=== PATIENT | female | born 1975 | race Native Hawaiian/Other Pacific Islander ===

== ENCOUNTER → 2018-07-27 14:49 | Outpatient (CLI) | payer OTHER, SELFPAY ==
[2018-07-27 15:10] LABS: Add Manual Diff / Slide Review NO; Basophils Absolute Auto 200 /uL (0-100); Eosinophils Absolute Auto 200 /uL (0-450); Eosinophils Percent Auto 1.8 % (2-4); Hematocrit 44.2 % (36-46); Hemoglobin 15.1 g/dL (12.0-16.0); Lymphocytes Absolute Auto 2200 /uL (1100-4500); Lymphocytes Percent Auto 22.6 % (25-40); Mean Corpuscular HGB Conc 34.1 % (30-36); Mean Corpuscular Hemoglobin 31.4 PG (26-34); Mean Corpuscular Volume 91.9 fL (80-100); Monocytes Absolute Auto 400 /uL (0-900); Monocytes Percent Auto 4.2 % (3-14); Neutrophils Absolute Auto 6800 /uL (1500-7000); Neutrophils Percent Auto 69.4 % (50-75); Platelet Count 323 X10^3/uL (150-400); Red Blood Cell Count 4.81 X10^6/uL (4.0-5.2); Red Cell Distribution Width 12.2 % (11.6-14.8); White Blood Cell Count 9.8 X10^3/uL (4.5-11.0)
--- NOTE | 2018-07-27 15:31 | DI.US.S_ITS ---
PROCEDURE: US PELVIC COMPLETE INDICATIONS: LOWER LEFT QUADRANT PAIN TECHNIQUE: Real-time scanning was performed of the pelvic organs, with image documentation. Additional endovaginal scanning was necessary due to incomplete visualization of the adnexal and endometrial structures by transabdominal scanning. COMPARISON: None. FINDINGS: Transabdominal scanning: Limited scanning through the kidneys shows no hydronephrosis. No pathologic free abdominal or pelvic fluid. Endovaginal scanning: Uterus: Surgically absent Ovaries: Right ovary could not be seen despite both transabdominal and transvaginal scanning. The left ovary measures 4.0 x 4.0 x 4.8 cm containing 2 simple cysts one measuring 2.5 x 3.5 x 3.6 cm and the second measuring 1.6 x 1.9 x 1.8 cm. IMPRESSION: 2 simple cysts are seen at the left ovary, measuring up to 3.6 cm in maximal dimension. Prior hysterectomy, nonvisualization of the right ovary. A definite source of left pelvic pain otherwise is not seen. Followup pelvic ultrasound in 6-8 weeks to further assess for the right ovary and assess for resolution of the dominant left ovarian cyst is recommended. Dictated by: Danish Koenig M.D. on 07/27/2018 at 16:15 Approved by: Danish Koenig M.D. on 07/27/2018 at 16:18
[2018-07-27 16:03] LABS: Alanine Aminotransferase 41 IU/L (9-52); Albumin 4.8 g/dL (3.5-5.0); Albumin Globulin Ratio 1.2 (1.0-2.8); Alkaline Phosphatase 60 U/L (38-126); Aspartate Aminotransferase 32 IU/L (14-36); Bilirubin Total 0.5 mg/dL (0.2-1.3); Blood Urea Nitrogen 10 mg/dL (7-17); Calcium 9.6 mg/dL (8.4-10.2); Carbon Dioxide 27 mmol/L (22-32); Chloride 100 mmol/L (98-107); Estimated Glomerular Filt Rate > 60.0 mL/min (>60); Globulin 3.9 g/dL (1.7-4.1); Glucose 97 mg/dL (70-100); HEMOLYSIS < 15 (0-50); Potassium 4.4 mmol/L (3.4-5.1); Sodium 138 mmol/L (137-145); Total Protein 8.7 g/dL (6.3-8.2)
== END ==
PROVIDERS: Visit Provider Physician Assistant
DX: R10.32 Left lower quadrant pain (principal); N83.292 Other ovarian cyst, left side; Z90.710 Acquired absence of both cervix and uterus
CPT/HCPCS: 36415; 76830; 76856; 80053; 85025

== ENCOUNTER → 2018-09-18 13:24 | Outpatient (CLI) | payer OTHER, SELFPAY ==
[2018-09-18 13:56] LABS: Hemoglobin A1C% w Est Avg Glu 5.4 % (4.0-6.0)
[2018-09-18 14:26] LABS: Alanine Aminotransferase 40 IU/L (9-52); Albumin 4.7 g/dL (3.5-5.0); Albumin Globulin Ratio 1.3 (1.0-2.8); Alkaline Phosphatase 56 U/L (38-126); Aspartate Aminotransferase 28 IU/L (14-36); BUN Creatinine Ratio 18.3 (6-22); Bilirubin Total 0.6 mg/dL (0.2-1.3); Blood Urea Nitrogen 11 mg/dL (7-17); Calcium 9.5 mg/dL (8.4-10.2); Carbon Dioxide 26 mmol/L (22-32); Chloride 103 mmol/L (98-107); Cholesterol 103 mg/dL (140-199); Estimated Glomerular Filt Rate > 60.0 mL/min (>60); Globulin 3.5 g/dL (1.7-4.1); Glucose 93 mg/dL (70-100); HDL Cholesterol 71 mg/dL (40-60); HEMOLYSIS < 15 (0-50); LDL Cholesterol Calculated 25 mg/dL (<100); Potassium 4.5 mmol/L (3.4-5.1); Sodium 139 mmol/L (137-145); Total Protein 8.2 g/dL (6.3-8.2); Triglycerides 33 mg/dL (35-150)
== END ==
PROVIDERS: Visit Provider Physician Assistant
DX: Z13.1 Encounter for screening for diabetes mellitus (principal); Z82.49 Family history of ischemic heart disease and other diseases of the circulatory system; Z83.3 Family history of diabetes mellitus; Z13.220 Encounter for screening for lipoid disorders; Z13.6 Encounter for screening for cardiovascular disorders; Z83.438 Family history of other disorder of lipoprotein metabolism and other lipidemia
CPT/HCPCS: 36415; 80053; 80061; 83036

== ENCOUNTER → 2018-10-01 09:14 | Outpatient (CLI) | payer OTHER, SELFPAY ==
--- NOTE | 2018-10-01 09:16 | DI.US.S_ITS ---
PROCEDURE: US PELVIC COMPLETE INDICATIONS: LLQ pain TECHNIQUE: Real-time scanning was performed of the pelvic organs, with image documentation. Additional endovaginal scanning was necessary due to incomplete visualization of the adnexal and endometrial structures by transabdominal scanning. COMPARISON: [facility], , PELVIC COMPLETE, 07/27/2018, 15:11. FINDINGS: Transabdominal scanning: Limited scanning through the kidneys shows no hydronephrosis. No pathologic free abdominal or pelvic fluid. Endovaginal scanning: Uterus: Uterus is surgically absent. Numerous simple nabothian cysts are present in the residual cervix, largest measuring about 1.6 cm. Ovaries: The right ovary was not visualized. The left ovary measures 2.9 x 1.8 x 2.1 cm, decreased in size compared to the prior study. It contained 2 dominant cystic masses measuring 1.6 and 1.2 cm, previously 3.6 and 1.9 cm. Small amount of fluid in the left adnexa is present. There is normal vascularity in the left ovary. IMPRESSION: 1. Interval involution of 2 dominant follicles on the left ovary with trace amount of adjacent fluid indicating a recent decompression. 2. Nonvisualization of the right ovary. 3. Hysterectomy with numerous simple nabothian cysts in the residual cervix. Dictated by: Kaylene Tubbs M.D. on 10/01/2018 at 11:17 Approved by: Kaylene Tubbs M.D. on 10/01/2018 at 11:22
== END ==
PROVIDERS: PCP Physician Assistant; Visit Provider Physician Assistant
DX: R10.32 Left lower quadrant pain (principal); N88.8 Other specified noninflammatory disorders of cervix uteri; Z90.710 Acquired absence of both cervix and uterus
CPT/HCPCS: 76830; 76856

== ENCOUNTER 2019-06-05 14:59 | Emergency (ER) | payer OTHER, SELFPAY ==
[2019-06-05 15:23] VITALS: BP 146/81; PULSE 72; RESP 14; TEMP 36.5; O2SAT 100
[2019-06-05 15:26] LABS: Bacteria Urine None Seen
--- NOTE | 2019-06-05 15:35 | ED_ITS ---
HPI - Abdominal Pain General Chief Complaint: Abdominal Pain Stated Complaint: lower left abdominal pain Time Seen by Provider: 06/05/19 15:24 Source: patient and old records reviewed Mode of arrival: Ambulatory Limitations: no limitations History of Present Illness HPI narrative: This is a 43-year-old female who comes in with complaint of abdominal pain patient states left lower quadrant. She states she has had pain intermittently for 24 hours. But has become constant at this point. Patient states that she has had the pain in the past intermittently but will take ibuprofen and it will improve. She states today that has not been the case and she is still uncomfortable. She denies fevers. She denies any lightheadedness or passing out. She denies any nausea or vomiting. She states she had 2 or 3 normal bowel movements today and hasn't had any diarrhea or constipation recently. No black or bloody stools. She denies any urinary frequency, dysuria urgency. She denies any vaginal bleeding or discharge. States that she intermittently has hives so will occasionally take Zyrtec if she doesn't have a good reason for the hives. Also states she has had an ovarian cyst in the past but that they were quite small and followed up with ultrasound. Patient has had a hysterectomy secondary to excessive bleeding when she delivered her son. Related Data Home Medications Medication Instructions Recorded Confirmed cetirizine 10 mg capsule 10 mg PO DAILY PRN 08/25/18 06/05/19 ibuprofen 800 mg tablet See Rx Instructions PO ONCE PRN 10/12/18 06/05/19 tab Previous Rx's Medication Instructions Recorded fluticasone propionate 50 2 spray NASAL DAILY #8 gram 02/12/19 mcg/actuation nasal spray,suspension meclizine 12.5 mg tablet 12.5 mg PO BID-TID PRN #20 tab 02/12/19 meloxicam 7.5 mg PO DAILY PRN #10 tab 06/05/19 Allergies Allergy/AdvReac Type Severity Reaction Status Date / Time amoxicillin [From AUGMENTIN] Allergy Severe chest Verified 06/05/19 16:02 pain/SOB/dizziness/rash/hives clavulanic acid Allergy Severe chest Verified 06/05/19 16:02 [From AUGMENTIN] pain/SOB/dizziness/rash/hives Penicillins [PENICILLINS] Allergy Severe chest Verified 06/05/19 16:02 pain/SOB/dizziness/rash/hives shellfish derived Allergy Severe HIVES, Verified 06/05/19 16:02 [SHELLFISH DERIVED] ITCHING, STOMACH PAIN aspirin [ASPIRIN] Allergy Intermediate Big hives Verified 06/05/19 16:02 Review of Systems Review of Systems ROS Unobtainable: All systems reviewed & are unremarkable except as noted in HPI and below Patient History Surgical History (Updated 06/05/19 @ 15:38 by Skye Barney DO) H/O: hysterectomy (Acute) Social History Smoking Status: Never smoker second hand exposure: No alcohol intake: never substance use type: does not use Smoking Status: Never smoker alcohol intake frequency: 0-2 drinks per day Alcohol type: wine Substance Use Type: does not use Exam Narrative Exam Narrative: GENERAL: Alert and oriented x three, moderately obese well- appearing female in mild to moderate distress. HEENT: Head normocephalic, atraumatic, EOMI, pupils reactive, face symmetric, moist mucous membranes NECK: Supple, full range of motion CARDIOVASCULAR: Regular rate and rhythm without murmurs, rubs or gallops. RESPIRATORY: Breath sounds equal bilaterally, no wheezes rales or rhonchi. ABDOMEN: Soft, patient is nontender with palpation and states it is not tender when I palpate but does hold her hand and her left lower quadrant. Normoactive bowel sounds all 4 quadrants. No guarding or rebound, rigidity, no mass, no inguinal hernia noted. : No CVA tenderness EXTREMITIES: Normal range of motion, no clubbing or edema. Neurovascularly in tact NEUROLOGICAL: Cranial nerves II through XII grossly intact. Moving all extremities SKIN: Warm, dry, no petechiae, no rashes or lesions. Initial Vital Signs Initial Vital Signs: Vital Signs Temperature 97.7 F 06/05/19 15:23 Pulse Rate 72 06/05/19 15:23 Respiratory Rate 14 06/05/19 15:23 Blood Pressure 146/81 H 06/05/19 15:23 Pulse Oximetry 100 06/05/19 15:23 Course Orders Ordered: ED Orders 06/05/19 15:15 Urine Microscopic Stat 06/05/19 15:30 Complete Blood Count AUTO DIFF Stat Comprehensive Metabolic Panel Stat Lipase Stat Partial Thromboplastin Time Stat Prothrombin Time INR Stat 06/05/19 15:35 US pelvic complete Stat 06/05/19 16:47 CT kidney ureter bladder (KUB) Stat Discontinued Medications Dicyclomine HCl (Bentyl) 20 mg PO NOW ONE Stop: 06/05/19 16:54 Last Admin: 06/05/19 17:10 Dose: 20 mg Documented by: BEBA Ketorolac Tromethamine (Toradol) 30 mg IV NOW ONE Stop: 06/05/19 15:36 Last Admin: 06/05/19 16:10 Dose: 30 mg Documented by: BEBA Vital Signs Vital signs: Vital Signs - 8 hr 06/05/19 15:23 06/05/19 16:24 06/05/19 17:14 Temperature 97.7 F Pulse Rate 72 72 62 Respiratory Rate 14 18 Blood Pressure 146/81 H Blood Pressure [Right Arm] 122/80 102/68 Pulse Oximetry 100 100 100 06/05/19 18:01 Temperature Pulse Rate 56 L Respiratory Rate Blood Pressure Blood Pressure [Right Arm] 103/67 Pulse Oximetry 100 MDM - Abdominal Pain Lab Data Attestation: I reviewed the patient's lab results. Result diagrams: 06/05/19 15:30 06/05/19 15:30 Labs: Lab Results 06/05/19 06/05/19 06/05/19 Range/Units 15:15 15:30 15:30 WBC 9.0 (4.5-11.0) X10^3/uL RBC 4.37 (4.0-5.2) X10^6/uL Hgb 14.0 (12.0-16.0) g/dL Hct 41.4 (36-46) % MCV 94.7 (80-100) fL MCH 32.0 (26-34) PG MCHC 33.7 (30-36) % RDW 12.4 (11.6-14.8) % Plt Count 299 (150-400) X10^3/uL Neut % (Auto) 77.4 H (50-75) % Lymph % (Auto) 11.2 L (25-40) % [place] % (Auto) 4.1 (3-14) % Eos % (Auto) 4.2 H (2-4) % Baso % (Auto) 3.1 H (0-2) % Neut # (Auto) 7000 (6265-0489) /uL Lymph # (Auto) 1000 L (4729-3705) /uL [place] # (Auto) 400 (0-900) /uL Eos # (Auto) 400 (0-450) /uL Baso # (Auto) 300 H (0-100) /uL PT 10.3 (10.1-12.7) SECONDS INR 0.9 (0.9-1.3) APTT 31 (26.4-36.2) SECONDS Sodium (137-145) mmol/L Potassium (3.4-5.1) mmol/L Chloride (98-107) mmol/L Carbon Dioxide (22-32) mmol/L BUN (7-17) mg/dL Creatinine (0.52-1.04) mg/dL Estimated GFR (>60) mL/min BUN/Creatinine Ratio (6-22) Glucose (70-100) mg/dL Calcium (8.4-10.2) mg/dL Total Bilirubin (0.2-1.3) mg/dL AST (14-36) IU/L ALT (<35) IU/L Alkaline Phosphatase (38-126) U/L Total Protein (6.3-8.2) g/dL Albumin (3.5-5.0) g/dL Globulin (1.7-4.1) g/dL Albumin/Globulin Ratio (1.0-2.8) Lipase (23-300) U/L Urine RBC 0-1/hpf (0-5/HPF) Urine WBC 0-1/hpf (0-5/HPF) Ur Squamous Epith Cells 0-1 /hpf (0-5/HPF) Amorphous Sediment 1+ Urine Bacteria None seen (None) Ur Culture Indicated? Cult not indicated 06/05/19 Range/Units 15:30 WBC (4.5-11.0) X10^3/uL RBC (4.0-5.2) X10^6/uL Hgb (12.0-16.0) g/dL Hct (36-46) % MCV (80-100) fL MCH (26-34) PG MCHC (30-36) % RDW (11.6-14.8) % Plt Count (150-400) X10^3/uL Neut % (Auto) (50-75) % Lymph % (Auto) (25-40) % [place] % (Auto) (3-14) % Eos % (Auto) (2-4) % Baso % (Auto) (0-2) % Neut # (Auto) (0855-4518) /uL Lymph # (Auto) (9633-9527) /uL [place] # (Auto) (0-900) /uL Eos # (Auto) (0-450) /uL Baso # (Auto) (0-100) /uL PT (10.1-12.7) SECONDS INR (0.9-1.3) APTT (26.4-36.2) SECONDS Sodium 139 (137-145) mmol/L Potassium 4.4 (3.4-5.1) mmol/L Chloride 107 (98-107) mmol/L Carbon Dioxide 24 (22-32) mmol/L BUN 18 H (7-17) mg/dL Creatinine 0.40 L (0.52-1.04) mg/dL Estimated GFR > 60.0 (>60) mL/min BUN/Creatinine Ratio 45.0 H (6-22) Glucose 101 H (70-100) mg/dL Calcium 8.6 (8.4-10.2) mg/dL Total Bilirubin 0.4 (0.2-1.3) mg/dL AST 38 H (14-36) IU/L ALT 31 (<35) IU/L Alkaline Phosphatase 54 (38-126) U/L Total Protein 8.0 (6.3-8.2) g/dL Albumin 4.5 (3.5-5.0) g/dL Globulin 3.5 (1.7-4.1) g/dL Albumin/Globulin Ratio 1.3 (1.0-2.8) Lipase 234 (23-300) U/L Urine RBC (0-5/HPF) Urine WBC (0-5/HPF) Ur Squamous Epith Cells (0-5/HPF) Amorphous Sediment Urine Bacteria (None) Ur Culture Indicated? Point of care testing: Point of Care Testing Test Results Negative Urine Dip Bedside Urine Glucose Negative Bedside Urine Bilirubin - Negative Bedside Urine Ketone - Negative Urine Specific Ada 1.015 Bedside Urine Occult Blood +/- Bedside Urine pH 6.0 Bedside Urine Protein - Negative Bedside Urine Urobilinogen - Negative Bedside Urine Nitrite - Negative Bedside Urine Leukocytes - Negative Esterase Imaging Data CT scan - abdomen: Radiologist's impression: [address] [address] [address] Scan Report Signed Patient: Maribel Begum R#: [id number] : 1975Acct:[id number] Age/Sex: 43 / FDate of Service: 06/05/19 Loc: ED Accession Number: [id number] Procedure: CT kidney ureter bladder (KUB) Ordering Provider: Skye Barney D.O. PROCEDURE: CT KIDNEY URETER BLADDER (KUB) INDICATIONS: LLQ pain, has small cyst, no flank pain. TECHNIQUE: Noncontrast 5 mm thick sections acquired from the diaphragms to the symphysis. 5 mm thick coronal and sagittal reformats were then performed. For radiation dose reduction, the following was used: automated exposure control, adjustment of mA and/or kV according to patient size. COMPARISON: [facility], , US PELVIC COMPLETE, 06/05/2019, 16:06. FINDINGS: Image quality: Excellent. Lung bases: Lung bases are clear. Heart size is normal. Urinary system: Both kidneys are normal in size. No kidney stones. No hydronephrosis or perinephric fat stranding. Incidental note is made of a circumaortic left renal vein. Both ureters appear non-dilated throughout their expected courses. Bladder wall thickness is normal; no calcified bladder stones. Other solid organs: Liver is normal in size. Gallbladder has been removed. Pancreas is normal in contours. Spleen is normal in size. No adrenal nodules. Peritoneum and bowel: In this patient with this given history, scrutiny is given to sigmoid colon. No significant diverticulosis can be seen. Mild scattered diverticula formation can be seen elsewhere within the colon, however. No significant left lower quadrant inflammatory changes. Unenhanced bowel loops demonstrate normal wall thickness and caliber. No free fluid or air. Nodes and vessels: No retroperitoneal or mesenteric adenopathy by size criteria. Aorta and inferior vena cava are normal in caliber. Abdominal wall: No ventral hernias. Pelvis: No free pelvic fluid. No inguinal hernias or adenopathy. This patient is status post hysterectomy. No adnexal masses are seen. Bones: No suspicious bony lesions. No vertebral body compression fractures. Mild levoconvex scoliotic curvature is noted. IMPRESSION: No imaging explanation is found for this patient's presenting history of left lower quadrant pain. Normal sigmoid colon. Incidental note is made of: Cholecystectomy Circumaortic left renal vein Hysterectomy Levoconvex scoliotic curvature Dictated by: Brendan Nelson M.D. on 06/05/2019 at 16:14 Approved by: Brendan Nelson M.D. on 06/05/2019 at 16:19 [facility] Narrative Medical decision making narrative: Patient has a small 11mm physiologic appearing follicle is within the left ovary, mild amount of free pelvic fluid on US, no other acute findings on CT imaging. Urine is negative. BUN is slightly elevated at 18, AST is 38 with no other major changes. Patient appears moderately uncomfortable but does not appear consistent with torsion, no signs of colitis or diverticulitis, no kidney stones noted. Discussed with patient no exact findings for her discomfort. Discussed plan for watchful waiting, signs and symptoms to watch for an reasons to return. Patient states she does not tolerate narcotics at all. Bentyl was not very helpful for patient. Given rx for meloxicam. Discharge Plan Departure Patient Disposition: Home Clinical Impression: Abdominal pain Discharge Date/Time: 06/05/19 18:12 Instructions: DI for Abdominal Pain-Adult Activity Restrictions/Additional Instructions: Follow up with your physician on Friday if your symptoms have not improved. Call for an appointment. Continue home medications as prescribed. Take pain medication as prescribed. You may take 1 tablet twice daily. Do not take ibuprofen with this medication or other NSAIDs. You may take up to a 1000 mg every 8 hours as needed. [facility]. Return to the ER for fevers greater than 100.4F, increasing or new abdominal pain, passing out, persistent vomiting, black or bloody stool, new vaginal discharge or other new or concerning symptoms. Prescriptions: New meloxicam 7.5 mg tablet 7.5 mg PO DAILY PRN (Reason: pain) Qty: 10 RF: 0 No Action Zyrtec 10 mg capsule 10 mg PO DAILY PRN (Reason: Allergic Reaction) RF: 0 ibuprofen 800 mg tablet See Rx Instructions PO ONCE PRN (Reason: Pain (Scale Score 1-3)) RF: 0 fluticasone propionate 50 mcg/actuation spray,suspension 2 spray NASAL DAILY Qty: 8 RF: 0 meclizine 12.5 mg tablet 12.5 mg PO BID-TID PRN (Reason: dizziness) Qty: 20 RF: 0 Referrals: Bree Cook PA-C [Primary Care Provider] - Stand Alone Forms: Work Release Note
--- NOTE | 2019-06-05 15:35 | DI.US.S_ITS ---
PROCEDURE: US PELVIC COMPLETE INDICATIONS: LEFT PELVIC PAIN TECHNIQUE: Real-time scanning was performed of the pelvic organs, with image documentation. Additional endovaginal scanning was necessary due to incomplete visualization of the adnexal and endometrial structures by transabdominal scanning. COMPARISON: [facility], PELVIC COMPLETE, 10/01/2018, 9:27. [facility], PELVIC COMPLETE, 07/27/2018, 15:11. FINDINGS: Transabdominal scanning: A mild amount of free pelvic fluid is seen, which is considered to be within physiologic limits. Limited scanning through the kidneys shows no hydronephrosis. Endovaginal scanning: Uterus: Removed. Ovaries: The right ovary is not seen. The left ovary measures 2.1 x 2 x 2.3 cm. There is an 11 mm physiologic appearing follicle within the left ovary. The previously seen cyst is no longer seen. IMPRESSION: Status post hysterectomy. Normal appearing left ovary. Right ovary not seen. Dictated by: Brendan Nelson M.D. on 06/05/2019 at 15:58 Approved by: Brendan Nelson M.D. on 06/05/2019 at 15:59
[2019-06-05 15:36] LABS: Amorphous Sediment Urine 1+; Culture Indicated Urine Cult Not Indicated; RBC Urine 0-1/HPF (0-5/HPF); Squamous Epithelial Cell Urine 0-1 /HPF (0-5/HPF); WBC Urine 0-1/HPF (0-5/HPF)
[2019-06-05 15:39] LABS: Add Manual Diff / Slide Review NO; Basophils Absolute Auto 300 /uL (0-100); Basophils Percent Auto 3.1 % (0-2); Eosinophils Absolute Auto 400 /uL (0-450); Eosinophils Percent Auto 4.2 % (2-4); Hematocrit 41.4 % (36-46); Lymphocytes Absolute Auto 1000 /uL (1100-4500); Lymphocytes Percent Auto 11.2 % (25-40); Mean Corpuscular HGB Conc 33.7 % (30-36); Mean Corpuscular Volume 94.7 fL (80-100); Monocytes Absolute Auto 400 /uL (0-900); Monocytes Percent Auto 4.1 % (3-14); Neutrophils Absolute Auto 7000 /uL (1500-7000); Neutrophils Percent Auto 77.4 % (50-75); Platelet Count 299 X10^3/uL (150-400); Red Blood Cell Count 4.37 X10^6/uL (4.0-5.2); Red Cell Distribution Width 12.4 % (11.6-14.8)
[2019-06-05 15:45] LABS: INR 0.9 (0.9-1.3); Prothrombin Time 10.3 SECONDS (10.1-12.7)
[2019-06-05 15:47] LABS: PTT Partial Thromboplastin Tim 31 SECONDS (26.4-36.2)
[2019-06-05 15:49] LABS: Alanine Aminotransferase 31 IU/L (<35); Albumin 4.5 g/dL (3.5-5.0); Albumin Globulin Ratio 1.3 (1.0-2.8); Alkaline Phosphatase 54 U/L (38-126); Aspartate Aminotransferase 38 IU/L (14-36); Bilirubin Total 0.4 mg/dL (0.2-1.3); Blood Urea Nitrogen 18 mg/dL (7-17); Calcium 8.6 mg/dL (8.4-10.2); Carbon Dioxide 24 mmol/L (22-32); Chloride 107 mmol/L (98-107); Estimated Glomerular Filt Rate > 60.0 mL/min (>60); Globulin 3.5 g/dL (1.7-4.1); Glucose 101 mg/dL (70-100); HEMOLYSIS 36 (0-50); Lipase 234 U/L (23-300); Potassium 4.4 mmol/L (3.4-5.1); Sodium 139 mmol/L (137-145)
[2019-06-05] MEDS: KETOROLAC 60 MG/2 ML VIAL 30 MG IV (16:10)
[2019-06-05 16:24] VITALS: BP 122/80; PULSE 72; O2SAT 100
--- NOTE | 2019-06-05 16:47 | DI.CT.S_ITS ---
PROCEDURE: CT KIDNEY URETER BLADDER (KUB) INDICATIONS: LLQ pain, has small cyst, no flank pain. TECHNIQUE: Noncontrast 5 mm thick sections acquired from the diaphragms to the symphysis. 5 mm thick coronal and sagittal reformats were then performed. For radiation dose reduction, the following was used: automated exposure control, adjustment of mA and/or kV according to patient size. COMPARISON: [facility], , PELVIC COMPLETE, 06/05/2019, 16:06. FINDINGS: Image quality: Excellent. Lung bases: Lung bases are clear. Heart size is normal. Urinary system: Both kidneys are normal in size. No kidney stones. No hydronephrosis or perinephric fat stranding. Incidental note is made of a circumaortic left renal vein. Both ureters appear non-dilated throughout their expected courses. Bladder wall thickness is normal; no calcified bladder stones. Other solid organs: Liver is normal in size. Gallbladder has been removed. Pancreas is normal in contours. Spleen is normal in size. No adrenal nodules. Peritoneum and bowel: In this patient with this given history, scrutiny is given to sigmoid colon. No significant diverticulosis can be seen. Mild scattered diverticula formation can be seen elsewhere within the colon, however. No significant left lower quadrant inflammatory changes. Unenhanced bowel loops demonstrate normal wall thickness and caliber. No free fluid or air. Nodes and vessels: No retroperitoneal or mesenteric adenopathy by size criteria. Aorta and inferior vena cava are normal in caliber. Abdominal wall: No ventral hernias. Pelvis: No free pelvic fluid. No inguinal hernias or adenopathy. This patient is status post hysterectomy. No adnexal masses are seen. Bones: No suspicious bony lesions. No vertebral body compression fractures. Mild levoconvex scoliotic curvature is noted. IMPRESSION: No imaging explanation is found for this patient's presenting history of left lower quadrant pain. Normal sigmoid colon. Incidental note is made of: Cholecystectomy Circumaortic left renal vein Hysterectomy Levoconvex scoliotic curvature Dictated by: Brendan Nelson M.D. on 06/05/2019 at 16:14 Approved by: Brendan Nelson M.D. on 06/05/2019 at 16:19
[2019-06-05] MEDS: DICYCLOMINE 10 MG CAPSULE 20 MG PO (17:10)
[2019-06-05 17:14] VITALS: BP 102/68; PULSE 62; RESP 18; O2SAT 100
[2019-06-05 18:01] VITALS: BP 103/67; PULSE 56; O2SAT 100
== END 2019-06-05 18:12 | disposition home or self-care (01) ==
PROVIDERS: Emergency Provider Emergency Medicine; PCP Physician Assistant
DX: R10.32 Left lower quadrant pain (principal)
CPT/HCPCS: 36415; 74176; 76830; 76856; 80053; 81003; 81015; 81025; 83690; 85025; 85610; 85730; 96374; 99284; J1885

== ENCOUNTER → 2019-07-12 13:23 | Outpatient (CLI) | payer OTHER, SELFPAY ==
[2019-07-12 14:00] LABS: Influenza A - CEPHEID Flu A NEGATIVE (NEGATIVE); Influenza B - CEPHEID Flu B NEGATIVE (NEGATIVE)
== END ==
PROVIDERS: Visit Provider Physician Assistant
DX: R68.89 Other general symptoms and signs (principal)
CPT/HCPCS: 87502

== ENCOUNTER → 2020-02-16 15:36 | Outpatient (CLI) | payer OTHER, SELFPAY | PROVIDERS: PCP Family Medicine; Visit Provider Nurse Practitioner Family | DX: N89.8 Other specified noninflammatory disorders of vagina (principal) | CPT/HCPCS: 87210 ==

== ENCOUNTER → 2020-02-18 10:32 | Outpatient (CLI) | payer OTHER, SELFPAY | PROVIDERS: PCP Family Medicine; Referring Provider Nurse Practitioner Family; Visit Provider Nurse Practitioner Family | DX: N89.8 Other specified noninflammatory disorders of vagina (principal) | CPT/HCPCS: 87491; 87591 ==

== ENCOUNTER → 2020-02-19 11:54 | Outpatient (CLI) | payer OTHER, SELFPAY | PROVIDERS: PCP Family Medicine; Visit Provider Physician Assistant | DX: N89.8 Other specified noninflammatory disorders of vagina (principal) | CPT/HCPCS: 87086; 87210 ==